=== PATIENT | female | born 1985 | race Two or more races ===

== ENCOUNTER 2022-09-06 16:31 | Emergency (ER) | payer OTHER ==
[~2022-09-06] VITALS: Ht 175.3 cm; Wt 110.0 kg
[2022-09-07 00:47] VITALS: BP 143/77
[2022-09-07] MEDS ORDERED: IBUP800T26 PO (15:52)
[2022-09-07] MEDS ORDERED: ERGO1CAP12 PO (15:52)
[2022-09-07] MEDS ORDERED: BACL10TA PO (15:52)
== END 2022-09-07 00:50 | disposition home or self-care (01) ==
LOC: ER 16:31
DX: R53.1 Weakness (principal)

== ENCOUNTER 2022-09-07 07:33 | Inpatient (IN) | payer OTHER ==
[~2022-09-07] VITALS: Ht 175.3 cm; Wt 110.0 kg
[2022-09-07 11:13] LABS: Basophils # (auto) 0 10 ^3/uL (0-0.2); Basophils % (auto) 0.7 % (0.0-2.0); Eosinophils # (auto) 0 10 ^3/uL (0-0.8); Eosinophils % (auto) 0.3 % (0.0-7.0); Hematocrit 40.2 % (36.0-46.0); Hemoglobin 13.3 g/dL (12.2-16.2); Lymphocytes # (auto) 1.4 10 ^3/uL (0.4-5.4); Lymphocytes % (auto) 22.6 % (10.0-50.0); Mean Corpuscular Hemoglobin 30.2 pg (28.0-32.0); Mean Corpuscular Hgb Conc. 33.2 g/dL (32.0-36.0); Mean Corpuscular Volume 91.1 fL (80.0-100.0); Monocytes # (auto) 0.3 10 ^3/uL (0-1.3); Monocytes % (auto) 5.4 % (0.0-12.0); Neutrophils # (auto) 4.5 10 ^3/uL (1.6-8.6); Nucleated Red Blood Cells % 0.1 %; Red Blood Cells 4.41 10^6/uL (4.0-5.20); Red Cell Distribution Width 13.9 % (11.8-14.3); White Blood Cell 6.3 10^3/uL (4.4-10.8)
[2022-09-07 11:33] LABS: Albumin 4.1 g/dL (3.4-5.0); BUN/Creatinine Ratio 11.1; Bilirubin, Total 0.7 mg/dL (0.2-1.0); CRP High Sensitivity 0.05 mg/dL (< 0.3); Calcium 8.7 mg/dL (8.5-10.1); Potassium 3.7 mmol/L (3.5-5.1); Total Protein 8.1 g/dL (6.4-8.2)
[2022-09-07] MEDS ORDERED: HYDROcodone-ACET 5/325MG TAB PO PRN (14:30)
[2022-09-07] MEDS ORDERED: ACETAMINOPHEN 325 MG TAB PO PRN (14:30)
[2022-09-07] MEDS ORDERED: KETOROLAC TROMETH 30 MG/ML 1ML VIAL IV ONE (14:45)
[2022-09-07 15:43] LABS: Cholesterol 171 mg/dL (< 200); HDL Cholesterol 54 mg/dL (40-59); LDL Cholesterol 109 mg/dL (< 100); Triglycerides 38 mg/dL (< 150)
[2022-09-07] MEDS ORDERED: IBUP800T26 PO (15:52)
[2022-09-07] MEDS ORDERED: ERGO1CAP12 PO (15:52)
[2022-09-07] MEDS ORDERED: BACL10TA PO (15:52)
[2022-09-07] MEDS ORDERED: methylPREDNISolone SOD SUCC 125 MG/2 ML VL IV ONE (18:00)
[2022-09-07] MEDS: SODIUM CHLORIDE 0.9% 1,000 ML IV SCH (19:03)
[2022-09-07] MEDS: ENOXAPARIN SOD 40 MG/0.4 ML SYRINGE SC SCH (19:04)
[2022-09-07] MEDS ORDERED: LORazepam 2MG/ML-1ML VIAL IV PRN (20:45)
[2022-09-07] MEDS ORDERED: KETOROLAC TROMETH 30 MG/ML 1ML VIAL IV PRN (20:45)
[2022-09-08] MEDS: IBUPROFEN 800 MG TAB PO SCH ×4 (00:18→21:13)
[2022-09-08 05:00] VITALS: BP 156/99
[2022-09-08] MEDS: SODIUM CHLORIDE 0.9% 1,000 ML IV SCH ×2 (05:09→17:19)
[2022-09-08 06:01] LABS: Potassium 4.3 mmol/L (3.5-5.1)
[2022-09-08 06:11] LABS: Albumin 4.1 g/dL (3.4-5.0); BUN/Creatinine Ratio 13.6; Calcium 9.8 mg/dL (8.5-10.1)
[2022-09-08 06:21] LABS: Basophils # (auto) 0 10 ^3/uL (0-0.2); Basophils % (auto) 0.4 % (0.0-2.0); Eosinophils # (auto) 0 10 ^3/uL (0-0.8); Hematocrit 39.8 % (36.0-46.0); Hemoglobin 13.2 g/dL (12.2-16.2); Lymphocytes # (auto) 0.8 10 ^3/uL (0.4-5.4); Lymphocytes % (auto) 10.1 % (10.0-50.0); Mean Corpuscular Hgb Conc. 33.1 g/dL (32.0-36.0); Mean Corpuscular Volume 90.7 fL (80.0-100.0); Monocytes # (auto) 0.2 10 ^3/uL (0-1.3); Monocytes % (auto) 1.8 % (0.0-12.0); Neutrophils # (auto) 7.2 10 ^3/uL (1.6-8.6); Neutrophils % (auto) 87.7 % (37.0-80.0); Nucleated Red Blood Cells % 0.1 %; Red Blood Cells 4.39 10^6/uL (4.0-5.20); Red Cell Distribution Width 13.9 % (11.8-14.3); White Blood Cell 8.2 10^3/uL (4.4-10.8)
[2022-09-08 06:27] LABS: Bilirubin, Total 0.6 mg/dL (0.2-1.0)
[2022-09-08] MEDS: BACLOFEN 10 MG TAB PO SCH (08:54)
[2022-09-08] MEDS: ENOXAPARIN SOD 40 MG/0.4 ML SYRINGE SC SCH (08:56)
[2022-09-08 09:00] VITALS: BP 151/93
[2022-09-08] MEDS ORDERED: methylPREDNISolone SOD SUCC 125 MG/2 ML VL IV ONE (09:00)
[2022-09-08 13:00] VITALS: BP 121/86
[2022-09-08 17:17] VITALS: BP 128/91
[2022-09-08 22:00] VITALS: BP 147/82
[2022-09-09 05:00] VITALS: BP 146/92
[2022-09-09] MEDS: IBUPROFEN 800 MG TAB PO SCH ×3 (05:33→22:11)
[2022-09-09] MEDS: SODIUM CHLORIDE 0.9% 1,000 ML IV SCH ×2 (06:30→19:50)
[2022-09-09 09:00] VITALS: BP 159/89
[2022-09-09] MEDS: BACLOFEN 10 MG TAB PO SCH (09:59)
[2022-09-09] MEDS: ENOXAPARIN SOD 40 MG/0.4 ML SYRINGE SC SCH (09:59)
[2022-09-09 13:00] VITALS: BP 129/73
[2022-09-09 17:27] VITALS: BP 143/86
[2022-09-09 22:00] VITALS: BP 120/86
[2022-09-10 05:00] VITALS: BP 118/89
[2022-09-10] MEDS: IBUPROFEN 800 MG TAB PO SCH (05:22)
[2022-09-10] MEDS: SODIUM CHLORIDE 0.9% 1,000 ML IV SCH (09:10)
[2022-09-10] MEDS: ENOXAPARIN SOD 40 MG/0.4 ML SYRINGE SC SCH (10:00)
[2022-09-10] MEDS: BACLOFEN 10 MG TAB PO SCH (10:00)
[2022-09-10 12:52] VITALS: BP 131/69
== END 2022-09-10 12:40 | disposition home or self-care (01) | DRG 948 ==
LOC: ER 07:33 → OVERFLOW 14:35 → EAST 09-08 01:08
PROVIDERS: ADMIT Nurse Practitioner Family; ATTEND Family Medicine
DX: R53.1 Weakness (principal); E66.9 Obesity, unspecified; R26.9 Unspecified abnormalities of gait and mobility; Z20.822 Contact with and (suspected) exposure to COVID-19; Z82.49 Family history of ischemic heart disease and other diseases of the circulatory system; Z68.35 Body mass index [BMI] 35.0-35.9, adult
CPT/HCPCS: 36415; 70551; 72141; 72148; 80053; 80061; 83036; 84443; 85025; 85652; 86141; 87426; 97116; 97163; G0378; J1885